=== PATIENT | female | born 1990 ===

== ENCOUNTER 2021-05-25 13:23 | Outpatient (CLI) | payer MEDICAID, SELFPAY | END 2021-05-25 13:24 | disposition home or self-care (01) | PROVIDERS: Visit Provider Family Medicine | DX: O20.0 Threatened abortion (principal) | CPT/HCPCS: 84702 ==

== ENCOUNTER 2021-05-28 10:54 | Outpatient (CLI) | payer MEDICAID, SELFPAY | END 2021-05-28 10:55 | disposition home or self-care (01) | LOC: LAB 10:58 | PROVIDERS: Visit Provider Family Medicine | DX: O20.0 Threatened abortion (principal) | CPT/HCPCS: 84702 ==